=== PATIENT | male | born 1955 | race Caucasian/White ===

== ENCOUNTER 2021-03-27 09:24 | Emergency (ER) | payer MEDICARE, SELFPAY ==
[2021-03-27 10:16] VITALS: BP 150/77; PULSE 88; RESP 18; TEMP 36.6; O2SAT 99
--- NOTE | 2021-03-27 11:05 | ED.ABDPAIN ---
HPI - Abdominal Pain General Chief Complaint: Abdominal Pain Stated Complaint: stomach issues Source: patient Mode of arrival: ambulatory Limitations: no limitations History of Present Illness HPI narrative: Patient is a 65-year-old male. He presents complaining of right-sided abdominal pain. He reports right flank pain x2 days and reports pain shifted to right upper abdomen starting today. He reports a history of kidney stones.. Denies nausea and vomiting. Patient reports pain with palpation. He denies any other significant medical history. He denies all other complaints at this time. MD elicited complaint: flank pain Related Data Allergies Allergy/AdvReac Type Severity Reaction Status Date / Time No Known Allergies Allergy Verified 03/27/21 10:27 Review of Systems Review of Systems: CONSTITUTIONAL: Denies fever, chills, or sweats. EYES: Denies visual changes, redness, or discharge. ENT: Denies rhinorrhea, congestion, sore throat, or otalgia. CARDIOVASCULAR: Denies chest pain, palpitations, or edema. RESPIRATORY: Denies cough or dyspnea. GASTROINTESTINAL: Denies abdominal pain, nausea, vomiting, or diarrhea. GENITOURINARY: Denies dysuria or hematuria. SKIN: Denies rash or itching. MUSCULOSKELETAL: Denies back pain, joint pain, or myalgia. NEUROLOGIC: Denies headache, numbness, dizziness, or weakness. PSYCHIATRIC: Denies anxiety or depression. Exam Narrative: GENERAL: Well-appearing, well-nourished, and in no acute distress. HEAD: Normocephalic, atraumatic. EYES: EOMI. No redness or drainage. Conjunctiva are normal. ENT: Mucous membranes pink and moist. CHEST: No respiratory distress. Clear to auscultation. HEART: Regular rate and rhythm. No murmur appreciated. Normal peripheral pulses. GI: Tenderness with palpation to right upper abdomen that radiates to right flank, no rebound or guarding n MUSCULOSKELETAL: No bony tenderness. EXTREMITIES: Normal range of motion. No edema. SKIN: Warm, dry, no rash. NEURO: No focal deficits. Alert and oriented x3. Gait steady. PSYCH: Normal affect. No signs of depression or anxiety. Course Vital Signs Vital signs: Vital Signs Temperature 36.6 C 03/27/21 10:16 Pulse Rate 88 03/27/21 10:16 Respiratory Rate 18 03/27/21 10:16 Blood Pressure 150/77 H 03/27/21 10:16 Pulse Oximetry 99 03/27/21 10:16 Temperature 36.6 C 03/27/21 10:16 Pulse Rate 88 03/27/21 10:16 Respiratory Rate 18 03/27/21 10:16 Blood Pressure 150/77 H 03/27/21 10:16 Pulse Oximetry 99 03/27/21 10:16 Reviewed. Patient has been instructed to follow-up with his PCP regarding his blood pressure. Transfer Transfered to: [facility] Transfer rationale: Higher Level of Care Accepting physician: Dr. Guevara, report to [facility] Transfer comments: Patient refused EMS transfer, patient to arrive by private vehicle. MDM - Abdominal Pain MDM Narrative Medical decision making narrative: Patient to be sent to emergency department for further evaluation and possible diagnostic testing. Patient agrees with plan of care. Patient is stable for discharge to hospital at this time. Patient reports that he will have family member drive him at this time. Differential Diagnosis Differential diagnosis: Likely abdominal pain Lab Data Attestation: I reviewed the patient's lab results. Labs: Urine Glucose Negative Reference Range: Negative Urine Bilirubin Negative Reference Range: Negative Urine Ketone Negative Reference Range: Negative Urine Specific [place] 1.025 Reference Range:1.001-1.035 Urine Blood Trace Reference Range: Negative * *
== END 2021-03-27 11:15 | disposition short-term general hospital (02) ==
LOC: EXPBETH 09:30
PROVIDERS: Emergency Provider Nurse Practitioner; PCP Internal Medicine
DX: R10.11 Right upper quadrant pain (principal)
CPT/HCPCS: 81003; 87086; 99203; G0463

== ENCOUNTER 2021-03-27 11:48 | Emergency (ER) | payer MEDICARE, SELFPAY ==
--- NOTE | ~2021-03-27 | CT_ITS ---
EXAMINATION: CT abdomen pelvis w con EXAM DATE: 03/27/2021 13:12 INDICATION: Abdominal, back pain. TECHNIQUE: Spiral CT of the abdomen and pelvis was performed following intravenous injection of 100 m L Omnipaque 350. Axial, coronal and sagittal images of the abdomen and pelvis were reviewed. The do se-length product (DLP) for this examination was 1071.41 mGy-cm. The exposure was tailored according to patient size (auto mA exposure control), and iterative reconstruction (ASIR) was used as addition al dose reduction technique. Comparison is made to prior examination from 05/02/2015. FINDINGS: The liver, spleen, adrenal glands and pancreas are unremarkable. There are cholecystectomy clips. Portal and splenic veins are patent. Kidneys enhance symmetrically. There is no hydronephr osis. There is 3 mm right nephrolithiasis. Several left kidney stones measuring up to 6 mm. Bilateral renal peripelvic cysts, largest on the left at 5.6 cm. The prostate is unremarkable. Small right in guinal fat-containing hernia. The bladder is unremarkable. There is no retroperitoneal or pelvic ly mphadenopathy. The appendix is normal. The stomach and small bowel are unremarkable. There is mild scattered coloni c diverticulosis. There is no adjacent inflammatory change to suggest diverticulitis. There is expec val amount of colonic stool. No free intraperitoneal gas. The heart is normal in size. There are no pericardial or pleural effusions. The lung bases are unremarkable. Several small pelvic sclerot ic foci likely bone islands. IMPRESSION: 1. No acute intra-abdominal findings. 2. Bilateral nephrolithiasis. Reviewed, dictated and finalized at location A.
[2021-03-27 12:29] VITALS: BP 151/83; RESP 17; TEMP 36.6; O2SAT 100
[2021-03-27 12:50] LABS: Basophils Absolute Auto 0.1 K/mm3 (0.0-0.1); Basophils Percent Auto 1.5 % (0.2-1.2); Eosinophils Absolute Auto 0.1 K/mm3 (0-0.3); Hemoglobin 16.7 g/dL (14.0-18.0); Immature Granulocyte Absolute 0.02 K/mm3 (0.00-0.031); Immature Granulocyte Percent A 0.4 % (0-0.5); Lymphocytes Absolute Auto 1.56 K/mm3 (0.9-3.2); Lymphocytes Percent Auto 32.6 % (18.3-44.2); Mean Corpuscular HGB Conc 33.4 g/dl (32-36); Mean Platelet Volume 9.3 fl (7.4-10.4); Monocytes Absolute Auto 0.5 K/mm3 (0.1-0.6); Monocytes Percent Auto 9.6 % (2.6-8.5); Neutrophils Absolute Auto 2.6 K/mm3 (1.3-6.7); Neutrophils Percent Auto 54.9 % (45.5-73.1); Platelet Count Result 204 k/mm3 (150-375); Red Blood Count 5.75 M/mm3 (4.6-6.20); Red Cell Distribution Width 13.9 % (11.5-14.5); White Blood Count 4.8 K/mm3 (4.5-10.0)
[2021-03-27 13:02] LABS: Alanine Aminotransferase 33 U/L (4-50); Albumin Level 4.5 g/dL (3.5-5.1); Alkaline Phosphatase 81 U/L (38-126); Anion Gap 12 mmol/L (8-16); Aspartate Amino Transferase 33 U/L (17-59); Bilirubin,Total 1.1 mg/dL (0.2-1.3); Blood Urea Nitrogen 15 mg/dL (9-20); Calcium 9.4 mg/dL (8.4-10.2); Carbon Dioxide 23 mmol/L (22-30); Chloride 105 mmol/L (98-107); Estimated CRCL calculation 109 ml/min; Estimated Glomerular Filt Rate > 60; Glucose 96 mg/dL (65-110); Lipase 259 U/L (23-300); Sodium 140 mmol/L (137-145)
[2021-03-27 14:07] LABS: Add Urine Microscopic? YES; Appearance Urine Clear (Clear); Bilirubin Urine Negative (Negative); Blood Urine Negative (Negative); Color Urine Colorless (Yellow); Glucose Urine UA Negative (Negative); Ketones Urine Trace mg/dL (Negative); Leukocyte Esterase Ur Negative LEU/UL (Negative); Nitrate Urine Negative (Negative); Protein Urine Negative (Negative); Specific Grav Ur 1.043 (1.001-1.035); Urobilinogen Urine Negative mg/dL (<2.0); WBC Urine 0-3 /hpf
[2021-03-27 15:33] VITALS: BP 150/86; PULSE 50; RESP 20; O2SAT 99
[2021-03-27] MEDS: diazePAM INJ (*CRX) 10 MG/2 ML SYRINGE 5 MG IV PUSH (15:54)
[2021-03-27 16:39] VITALS: BP 170/75; PULSE 45; RESP 20; O2SAT 98
--- NOTE | 2021-03-27 18:17 | ED.GENADULT ---
HPI - General Adult General Chief complaint: Urogenital-Male Stated complaint: abd pain Time Seen by Provider: 03/27/21 15:20 Source: patient Mode of arrival: ambulatory Limitations: no limitations History of Present Illness HPI narrative: Patient with history of kidney stones presents with chief complaint of right flank pain that has exasperated since last night. Patient states he was sitting at the bottom today when the pain became more intense. Patient states that he was seen at both also urgent care and was told that he had blood in his urine and needed to come to the emergency department to rule out kidney stone. Patient denies any fever, chills, inability to urinate, vomiting or diarrhea. Related Data Allergies Allergy/AdvReac Type Severity Reaction Status Date / Time No Known Allergies Allergy Verified 03/27/21 10:27 Review of Systems Review of Systems: CONSTITUTIONAL: Denies fever, chills, or sweats. EYES: Denies visual changes, redness, or discharge. ENT: Denies rhinorrhea, congestion, sore throat, or otalgia. CARDIOVASCULAR: Denies chest pain, palpitations, or edema. RESPIRATORY: Denies cough or dyspnea. GASTROINTESTINAL: Reports right flank pain and nausea denies abdominal pain, vomiting, or diarrhea. GENITOURINARY: Denies dysuria or hematuria. SKIN: Denies rash or itching. MUSCULOSKELETAL: Denies back pain, joint pain, or myalgia. NEUROLOGIC: Denies headache, numbness, dizziness, or weakness. PSYCHIATRIC: Denies anxiety or depression. Exam Narrative: GENERAL: Well-appearing, well-nourished, and in no acute distress. HEAD: Normocephalic, atraumatic. EYES: PERRLA and EOMI. CHEST: Clear to auscultation. No respiratory distress. No wheezes rales or rhonchi HEART: Regular rate and rhythm. No murmur heard. Normal peripheral pulses. ABDOMEN: muscle spasming to the right flank area with pain with palpation. No pain with palpation over the bladder or abdomen. Pain with rotation of thorax. No outward signs of injury or bruises or ecchymosis. EXTREMITIES: Normal range of motion. No edema. SKIN: Warm, dry, no rash. NEURO: No focal deficits. Alert and oriented x3. PSYCH: Normal mood and affect. Course Vital Signs Vital signs: Vital Signs Temperature 97.8 F 03/27/21 12:29 Respiratory Rate 17 03/27/21 12:29 Blood Pressure 151/83 H 03/27/21 12:29 Pulse Oximetry 100 03/27/21 12:29 Temperature 97.8 F 03/27/21 12:29 Pulse Rate 45 L 03/27/21 16:39 Respiratory Rate 20 03/27/21 16:39 Blood Pressure 170/75 H 03/27/21 16:39 Pulse Oximetry 98 03/27/21 16:39 Medical Decision Making MDM Narrative Medical decision making narrative: Patient does not have any signs of kidney stones. His labs are appropriate. Patient has been given Valium for muscle spasm and states his symptoms have remitted. Patient is in agreement with going home on muscle relaxers and anti-inflammatories. Patient directed to follow-up with his primary care for further evaluation of his symptoms. Vital Signs Vital Signs: Vital Signs Temperature 97.8 F 03/27/21 12:29 Respiratory Rate 17 03/27/21 12:29 Blood Pressure 151/83 H 03/27/21 12:29 Pulse Oximetry 100 03/27/21 12:29 Temperature 97.8 F 03/27/21 12:29 Pulse Rate 45 L 03/27/21 16:39 Respiratory Rate 20 03/27/21 16:39 Blood Pressure 170/75 H 03/27/21 16:39 Pulse Oximetry 98 03/27/21 16:39 Lab Data Result diagrams: 03/27/21 12:43 03/27/21 12:43 Labs: Lab Results 03/27/21 03/27/21 03/27/21 Range/Units 12:43 12:43 13:56 WBC 4.8 (4.5-10.0) K/mm3 RBC 5.75 (4.6-6.20) M/mm3 Hgb 16.7 (14.0-18.0) g/dL Hct 50.0 (42.0-52.0) % MCV 87.0 (80-100) fl MCH 29.0 (26-34) pg MCHC 33.4 (32-36) g/dl RDW 13.9 (11.5-14.5) % Plt Count 204 (150-375) k/mm3 MPV 9.3 (7.4-10.4) fl Immature Gran % (Auto) 0.4 (0-0.5) % Neut % (Auto) 54.9 (45.5-73.1) % Lymph % (Auto)
[2021-03-27 18:22] VITALS: BP 167/83; PULSE 45; RESP 20; O2SAT 98
[2021-03-27 18:45] VITALS: BP 165/83; PULSE 45; RESP 20; O2SAT 100
[2021-03-29 08:18] LABS: Estimated CRCL calculation 86 ml/min; Estimated Glomerular Filt Rate > 60
== END 2021-03-27 18:47 | disposition home or self-care (01) ==
PROVIDERS: Emergency Provider Emergency Medicine; PCP Internal Medicine
DX: M62.838 Other muscle spasm (principal); R03.0 Elevated blood-pressure reading, without diagnosis of hypertension; Z87.442 Personal history of urinary calculi; N20.0 Calculus of kidney
CPT/HCPCS: 36415; 74177; 80053; 81001; 81003; 82565; 83690; 85025; 87086; 96374; 99284; J3360; Q9967

== ENCOUNTER 2021-03-30 08:13 | Emergency (ER) | payer MEDICARE, SELFPAY ==
[2021-03-30 08:20] VITALS: BP 123/78; PULSE 58; RESP 20; TEMP 36.6; O2SAT 98
[2021-03-30 08:32] VITALS: BP 123/78; PULSE 58; RESP 20; TEMP 36.6; O2SAT 98
--- NOTE | 2021-03-30 08:42 | ED.SKABFB ---
HPI - Skin/Abscess/Foreign Bdy General Chief complaint: Skin/Abscess/Foreign Body Stated complaint: Blisters on back from Medication Time Seen by Provider: 03/30/21 08:43 Source: patient, RN notes reviewed and old records reviewed Mode of arrival: ambulatory Limitations: no limitations History of Present Illness HPI narrative: 65 year old male presents to [facility] care with complaints of blister type of rash to his right flank which started this morning that extends around the right abdomen. Patient was seen in the clinic on 03/27/2021 for pain to that area and was sent to the emergency room for testing for possible kidney stones with no obstructing stone noted. Patient states that pain is bothersome today with rating of pain 2/10, denies any itching to rash at this time. MD complaint: rash Related Data Allergies Allergy/AdvReac Type Severity Reaction Status Date / Time No Known Allergies Allergy Verified 03/30/21 08:25 Review of Systems Review of Systems: CONSTITUTIONAL: Denies fever, chills, or sweats. EYES: Denies visual changes, redness, or discharge. ENT: Denies rhinorrhea, congestion, sore throat, or otalgia. CARDIOVASCULAR: Denies chest pain, palpitations, or edema. RESPIRATORY: Denies cough or dyspnea. GASTROINTESTINAL: Denies abdominal pain, nausea, vomiting, or diarrhea. GENITOURINARY: Denies dysuria or hematuria. SKIN: Positive rash right flank area of back radiating to lateral abdomen blisters noted no itching. MUSCULOSKELETAL: Positive for right flank pain radiating to right lateral upper abdomen,no joint pain, or myalgia. NEUROLOGIC: Denies headache, numbness, or weakness. PSYCHIATRIC: Denies anxiety or depression. All systems reviewed & are unremarkable except as noted in HPI and below PMFSH Comments At time of signature, agree with nursing past medical, surgical, social and family history. There is no relevant family history pertinent to the presenting complaint Exam Narrative: GENERAL: Well-appearing, well-nourished, and in no acute distress. HEAD: Normocephalic, atraumatic. EYES: PERRLA and EOMI. ENT: Nares clear, no rhinorrhea or epistaxis. Mucous membranes moist. NECK: Supple.no lymphadenopathy CHEST: Clear to auscultation. No respiratory distress.SAO2 98% on room air HEART: Regular rate and rhythm. No murmur heard. Normal peripheral pulses. ABDOMEN: Soft, nontender, nondistended, normal active bowel sounds. EXTREMITIES: Normal range of motion. No edema. SKIN: Warm, dry, light red rash with some blisters noted to right flank area radiating to lateral abdomen in pattern with no present itching but some pain to area. NEURO: No focal deficits. Alert and oriented x3. Course Vital Signs Vital signs: Vital Signs Temperature 36.6 C 03/30/21 08:20 Pulse Rate 58 L 03/30/21 08:20 Respiratory Rate 20 03/30/21 08:20 Blood Pressure 123/78 03/30/21 08:20 Pulse Oximetry 98 03/30/21 08:20 Temperature 36.6 C 03/30/21 08:32 Pulse Rate 58 L 03/30/21 08:32 Respiratory Rate 20 03/30/21 08:32 Blood Pressure 123/78 03/30/21 08:32 Pulse Oximetry 98 03/30/21 08:32 MDM - Skin/Abscess/Foreign Bdy Differential Diagnosis Differential diagnosis: Likely abscess of skin or subcutaneous tissue, urticaria, herpes zoster, cellulitis, contact dermatitis and other (shingles rash) Medical Records Attestation: I reviewed the patient's medical records. Critical Care Time Critical Care Time Critical Care Time: No Discharge Plan Discharge Clinical Impression: Shingles Qualifiers: Herpes zoster complications: without complications Qualified Code(s): B02.9 - Zoster without complications Patient Disposition: Home, Self-Care Condition: Stable Instructions: Valacyclovir (By mouth), Shingles (ED) Additional Instructions: apply lidocaine OTC ointment or cream to rash for comfort measures antiviral medication as prescribed for 7 days Oral pain medication of Tylenol or Ibuprofen for any fever or p
== END 2021-03-30 09:10 | disposition home or self-care (01) ==
PROVIDERS: Emergency Provider Registered Nurse; PCP Internal Medicine
DX: B02.9 Zoster without complications (principal); I10 Essential (primary) hypertension; Z96.653 Presence of artificial knee joint, bilateral
CPT/HCPCS: 99213; G0463

== ENCOUNTER → 2021-11-22 16:42 | Outpatient (CLI) | payer MEDICARE, SELFPAY ==
--- NOTE | ~2021-11-22 | MR_ITS ---
EXAMINATION: MR lumbar spine wo con DATE: 11/24/2021 09:20 CDT INDICATION: Lumbar spondylosis TECHNIQUE: Magnetic resonance imaging (MRI) of the lumbar spine was performed without intravenous con trast. Sequences included sagittal T2-weighted FSE, sagittal T2-weighted FS FSE, sagittal T1-weighted FSE, and axial T2-weighted FSE. COMPARISON: None FINDINGS: There is normal lumbar lordosis. Bone marrow signal is within normal limits. Conus medullar is and cauda equina are unremarkable. There is a left renal parapelvic cysts. There is disc narrowing at all lumbar levels with the exception of L3-4. The following disc levels ar e specifically discussed: T12-L1: The disc does not extend beyond the endplate margin. There is no facet joint osteoarthritis. There is no neural foraminal stenosis. There is no central canal stenosis. L1-L2: There is minimal annular disc bulging. There is no facet joint osteoarthritis. There is no lei ral foraminal stenosis. There is no central canal stenosis. L2-L3: There is mild annular disc bulging. There is mild facet joint osteoarthritis. There is no neur al foraminal stenosis. There is no central canal stenosis. L3-L4: There is mild annular disc bulging There is mild facet joint osteoarthritis. There is no neura l foraminal stenosis. There is no central canal stenosis. L4-L5: There is mild annular disc bulging. There is moderate facet joint osteoarthritis. There is mil d left neural foraminal stenosis. There is central canal stenosis. L5-S1: The disc does not extend beyond the endplate margin. There is bilateral facet joint osteoarthr itis. There is no neural foraminal stenosis. There is no central canal stenosis. IMPRESSION: 1. Mild-moderate lumbar spondylosis. Reviewed, dictated and finalized at location A.
== END ==
PROVIDERS: PCP Internal Medicine
DX: M47.816 Spondylosis without myelopathy or radiculopathy, lumbar region (principal)
CPT/HCPCS: 72148